=== PATIENT | female | born 1990 | race Caucasian/White ===

== ENCOUNTER 2025-01-02 00:21 | Emergency (ER) | payer OTHER ==
[~2025-01-02] VITALS: Ht 157.5 cm; Wt 112.0 kg
[2025-01-02 00:28] VITALS: O2SAT 99
[2025-01-02 01:07] LABS: BASOPHILS % 0.4 % (0.0-2.0); EOSINOPHILS % 2.9 % (0.0-5.0); HEMATOCRIT. 41.9 % (36.0-48.0); HEMOGLOBIN. 14.4 g/dL (12.0-16.0); LYMPHOCYTES % 41.5 % (20.0-50.0); MEAN CORPUSCULAR HEMOGLOBIN 31.3 pg (28.0-32.0); MEAN CORPUSCULAR HGB CONC 34.4 g/dL (31.0-37.0); MEAN CORPUSCULAR VOLUME 90.9 fL (81.0-99.0); MONOCYTES % 5.9 % (2.0-8.0); NEUTROPHILS % 49.3 % (40.0-76.0); PLATELET 238 x1000/uL (130-400); RED BLOOD CELL COUNT 4.61 mill/uL (4.2-5.4); RED CELL DISTRIBUTION WIDTH 13.6 % (11.6-14.6); WHITE BLOOD COUNT 9.8 x1000/uL (4.5-11.0)
[2025-01-02 01:19] LABS: CHLORIDE 105 mEq/L (98-107); POTASSIUM 3.6 mEq/L (3.5-5.1); SODIUM 140 mEq/L (136-145)
[2025-01-02 01:20] LABS: CALCIUM 9.3 mg/dL (8.7-10.4); CARBON DIOXIDE 24 mEq/L (21-32)
[2025-01-02 01:25] LABS: CREATININE 0.8 mg/dL (0.6-1.0); GLUCOSE 123 mg/dL (70-105); UREA NITROGEN BLOOD 7 mg/dL (9-23)
[2025-01-02 01:28] LABS: HCG SCREEN POSITIVE
[2025-01-02] MEDS: SODIUM CHLORIDE 0.9% 1,000 ML IV ONE ×2 (04:06→05:45)
[2025-01-02 08:04] VITALS: BP 104/63; PULSE 79; RESP 17; TEMP 36.8; O2SAT 99
== END 2025-01-02 08:03 | disposition home or self-care (01) ==
LOC: ER 00:21
DX: O03.4 Incomplete spontaneous abortion without complication (principal); Z90.710 Acquired absence of both cervix and uterus; Z3A.12 12 weeks gestation of pregnancy
CPT/HCPCS: 80048; 84703; 85025; 86850; 86900; 86901; 36415; 76801; 76817; 96360; 96361; 99284; J7030; Z7610